=== PATIENT | male | born 1980 | race African-American/Black ===

== ENCOUNTER → 2020-08-04 | Outpatient (CLI) | payer OTHER ==
[~2020-08-04] MED LIST: OMEP20TA8 PO; OXCA150T19 PO; SERT50TA PO
== END ==
LOC: LAB 15:52
PROVIDERS: ATTEND Internal Medicine Gastroenterology
DX: Z01.812 Encounter for preprocedural laboratory examination (principal); Z20.828 Contact with and (suspected) exposure to other viral communicable diseases
CPT/HCPCS: U0003

== ENCOUNTER → 2020-08-07 | Day surgery (SDC) | payer OTHER ==
[~2020-08-07] MED LIST changes: +IV RINGERS,LACTATED 1000ML 1,000 ML IV ONE; +LIDOCAINE 2% PF 5 ML VIAL. ONE; +PROPOFOL 10 MG/ML (20ML) VIAL. IV ONE
[2020-08-07 10:14] VITALS: BP 124/79
== END ==
LOC: SURG 08:31 → EDUNIT# 09:30
PROVIDERS: ATTEND Internal Medicine Gastroenterology
DX: K22.2 Esophageal obstruction (principal); Z79.899 Other long term (current) drug therapy
CPT/HCPCS: 43249; J2704; 43233